=== PATIENT | female | born 2000 | race Two or more races ===

== ENCOUNTER → 2025-04-01 | Outpatient (CLI) | payer BC ==
[2025-04-01 15:09] LABS: Hematocrit 42.7 % (36.0-46.0); Hemoglobin 14.5 g/dL (12.2-16.2); Mean Corpuscular Hemoglobin 28.0 pg (28.0-32.0); Mean Corpuscular Volume 82.5 fL (80.0-100.0); Nucleated Red Blood Cells % 0.0 %
[2025-04-01 16:05] LABS: Urine Protein, UAD Negative (Negative)
[2025-04-01 16:12] LABS: Alanine Aminotransferase 31 U/L (7-40); Alkaline Phosphatase 93 U/L (46-116); Anion Gap 9 (5-15); BUN/Creatinine Ratio 10.7 (10.0-20.0); Blood Urea Nitrogen 9 mg/dL (9-23); Calcium 10.4 mg/dL (8.7-10.4); Carbon Dioxide 24 mmol/L (20-31); Glucose 90 mg/dL (74-106); HDL Cholesterol 54 mg/dL (40-59); Potassium 4.6 mmol/L (3.5-5.1); Sodium 140 mmol/L (136-145); Total Protein 7.2 g/dL (5.7-8.2); Triglycerides 137 mg/dL (< 150)
[2025-04-01 16:13] LABS: Bilirubin, Total 0.3 mg/dL (0.2-1.0)
[2025-04-01 16:16] LABS: Albumin 4.8 g/dL (3.2-4.8); Chloride 107 mmol/L (98-107); Cholesterol 210 mg/dL (< 200)
[2025-04-02 16:07] LABS: Chlamydia Trachomatis, NAA Negative (Negative); Neisseria gonorrhoeae, NAA Negative (Negative)
== END | disposition home or self-care (01) ==
LOC: LAB 14:49
PROVIDERS: ATTEND Student in an Organized Health Care Education/Training Program
DX: E66.1 Drug-induced obesity (principal); Z11.3 Encounter for screening for infections with a predominantly sexual mode of transmission; Z00.01 Encounter for general adult medical examination with abnormal findings
CPT/HCPCS: 36415; 80053; 80061; 81001; 82306; 83036; 84443; 85025